=== PATIENT | female | born 1960 | race Caucasian/White ===

== ENCOUNTER 2020-09-17 09:30 | Day surgery (SDC) | payer MEDICARE, MEDICAID ==
[~2020-09-17] VITALS: Ht 165.1 cm; Wt 70.0 kg
[2020-09-17 10:28] VITALS: BP 120/55; PULSE 81; TEMP 98
[2020-09-17] MEDS ORDERED: SPIRIVA RESPIMAT4 GM IH (10:39)
[2020-09-17] MEDS ORDERED: ALBUTEROL0.83 MG/ML IH (10:40)
[2020-09-17] MEDS ORDERED: PROVENTIL0.09 MG/A1 IH (10:40)
[2020-09-17] MEDS ORDERED: CHANTIX 1MG1 MG PO (10:40)
[2020-09-17] MEDS ORDERED: TRICOR145 MG PO (10:41)
[2020-09-17] MEDS ORDERED: IMODIUM 2MG CAPS2 MG PO (10:41)
[2020-09-17] MEDS ORDERED: ATARAX50 MG PO (10:42)
[2020-09-17] MEDS ORDERED: SYNTHROID0.05 MG/TA PO (10:42)
[2020-09-17] MEDS ORDERED: NEURONTIN600 MG/TAB PO (10:43)
[2020-09-17] MEDS ORDERED: FOLIC ACID 11 MG/TA1 PO (10:43)
[2020-09-17] MEDS ORDERED: LEXAPRO20 MG PO (10:44)
[2020-09-17] MEDS ORDERED: LIPITOR20 MG PO (10:44)
[2020-09-17] MEDS ORDERED: BUSPAR DIVIDOSE15 MG PO (10:44)
[2020-09-17] MEDS ORDERED: B-12 250 MCG PO (10:45)
[2020-09-17] MEDS ORDERED: SEROQUEL 200MG200 MG PO (10:46)
[2020-09-17] MEDS ORDERED: BENZOCAINE 20% TOP (10:46)
[2020-09-17] MEDS ORDERED: NORCO 325 MG-101 TAB PO (10:47)
[2020-09-17] MEDS ORDERED: FLONASE NASAL S16 GM NS (10:48)
[2020-09-17] MEDS ORDERED: KLONOPIN 0.5MG0.5 MG PO (10:48)
[2020-09-17] MEDS ORDERED: MASON NATURAL2000 IU PO (10:49)
[2020-09-17] MEDS ORDERED: TYLENOL 500MG500 MG PO (10:49)
[2020-09-17] MEDS ORDERED: VITAMIN D31000 IU PO (10:50)
[2020-09-17] MEDS ORDERED: VALTREX 50500 MG/TAB PO (10:51)
[2020-09-17 12:57] VITALS: BP 148/67; PULSE 75; TEMP 98.2
--- NOTE | 2020-09-17 12:57 | NUR ---
Pt to [facility] [place] [facility] via cart from [place]. Pt drowsy, arouses to stimuli. Rates pain 6/10 to right foot. Pt very drowsy. Will hold pain medication at this time. Pt quickly falls back to sleep. VSS. Ice pack placed to right ankle. Call light within reach. Side rails up x2.
[2020-09-17 13:15] VITALS: BP 148/58; PULSE 73
--- NOTE | 2020-09-17 13:15 | NUR ---
Pt sleeping. Respirations even and unlabored. Call light within reach.
[2020-09-17 13:30] VITALS: BP 148/60; PULSE 74
--- NOTE | 2020-09-17 13:30 | NUR ---
Pt continues to sleep. Respirations even and unlabored. Will continue to monitor. Call light within reach.
[2020-09-17] MEDS ORDERED: ZOHYDRO ER10 MG BC (13:44)
[2020-09-17] MEDS ORDERED: COLACE 100100 MG/CAP BC (13:44)
[2020-09-17] MEDS ORDERED: CLEOCIN HCL300 MG BC (13:44)
[2020-09-17 13:45] VITALS: BP 130/79; PULSE 77
--- NOTE | 2020-09-17 13:45 | NUR ---
Pt awake. Warm blanke, jello and coffee given per request. Pt denies pain. Pt states "my foot is numb." Post op shoe remains in place since admit to recovery. Call light within reach.
[2020-09-17 14:15] VITALS: BP 142/68; PULSE 79
--- NOTE | 2020-09-17 14:15 | NUR ---
Pt up to restroom with walker and stand by assist. Pt is NWB to RLE. Pt voids without difficulties and assisted back to bed. Pt dressing. Call light within reach.
--- NOTE | 2020-09-17 14:30 | NUR ---
Discharge instructions reviewed. Pt voices understanding. IV site discontinued with all parts intact.
--- NOTE | 2020-09-17 14:51 | NUR ---
Pt escorted to private car via wheel chair. Pt accompanied home by her daughter.
== END 2020-09-17 14:51 | disposition home or self-care (01) ==
LOC: SDCO 09:30
DX: L92.8 Other granulomatous disorders of the skin and subcutaneous tissue (principal); E78.5 Hyperlipidemia, unspecified; J44.9 Chronic obstructive pulmonary disease, unspecified; G47.33 Obstructive sleep apnea (adult) (pediatric); G89.29 Other chronic pain; M54.9 Dorsalgia, unspecified; I73.00 Raynaud's syndrome without gangrene; I35.1 Nonrheumatic aortic (valve) insufficiency; I65.21 Occlusion and stenosis of right carotid artery; I25.9 Chronic ischemic heart disease, unspecified; I35.9 Nonrheumatic aortic valve disorder, unspecified; J34.2 Deviated nasal septum; M34.1 CR(E)ST syndrome; E55.9 Vitamin D deficiency, unspecified; M34.83 Systemic sclerosis with polyneuropathy; M05.9 Rheumatoid arthritis with rheumatoid factor, unspecified; F17.210 Nicotine dependence, cigarettes, uncomplicated; F41.9 Anxiety disorder, unspecified; F31.9 Bipolar disorder, unspecified; Z90.710 Acquired absence of both cervix and uterus; Z79.899 Other long term (current) drug therapy; Z99.89 Dependence on other enabling machines and devices; Z79.890 Hormone replacement therapy; Z79.891 Long term (current) use of opiate analgesic; Z89.421 Acquired absence of other right toe(s)
CPT/HCPCS: J0690; J2250; J2405; J2704; J7120

== ENCOUNTER 2020-11-25 14:05 | Emergency (ER) | payer MEDICARE, MEDICAID ==
[~2020-11-25] VITALS: Ht 162.6 cm; Wt 68.2 kg
[~2020-11-25 14:05] MED LIST: ALBUTEROL0.83 MG/ML IH; ATARAX50 MG PO; B-12 250 MCG PO; BENZOCAINE 20% TOP; BUSPAR DIVIDOSE15 MG PO; CHANTIX 1MG1 MG PO; CLEOCIN HCL300 MG BC; COLACE 100100 MG/CAP BC; FLONASE NASAL S16 GM NS; FOLIC ACID 11 MG/TA1 PO; IMODIUM 2MG CAPS2 MG PO; KLONOPIN 0.5MG0.5 MG PO; LEXAPRO20 MG PO; LIPITOR20 MG PO; MASON NATURAL2000 IU PO; NEURONTIN600 MG/TAB PO; NORCO 325 MG-101 TAB PO; PROVENTIL0.09 MG/A1 IH; SEROQUEL 200MG200 MG PO; SPIRIVA RESPIMAT4 GM IH; SYNTHROID0.05 MG/TA PO; TRICOR145 MG PO; TYLENOL 500MG500 MG PO; VALTREX 50500 MG/TAB PO; VITAMIN D31000 IU PO; ZOHYDRO ER10 MG BC
[2020-11-25 16:31] LABS: BASO # 0.1 (0.0-0.2); BASO % 0.5 % (0.0-2.0); EOS # 0.4 (0.0-0.7); EOS % 3.1 % (0-4.0); GRAN # 6.6 (1.4-6.5); GRAN % 59.3 % (42.2-75.2); HEMATOCRIT 38.9 % (37.0-47.0); HEMOGLOBIN 11.9 g/dl (12.5-16.0); LYMPH # 3.4 (1.2-3.4); LYMPH % 30.6 % (20.0-51.0); MEAN CELL VOLUME 91 fl (80.0-100.0); MEAN CORPUSCULAR HEMOGLOBIN 28 pg (27.0-31.0); MEAN CORPUSCULAR HGB CONC 31 g/dl (33.0-37.0); MEAN PLATELET VOLUME 9.9 fl (7.4-10.4); MONO # 0.7 (0.1-0.6); MONO % 6.2 % (1.7-9.3); PLATELET COUNT 346 K/mm3 (130-400); RED BLOOD COUNT 4.27 M/mm3 (4.10-5.30); REDCELL DISTRIBUTION WIDTH-CV 14.8 % (11.5-14.5)
[2020-11-25 16:48] LABS: ALANINE AMINOTRANSFERASE 23 U/L (4-34); ALBUMIN 4.4 gm/dL (3.5-5.0); ALKALINE PHOSPHATASE 41 U/L (50-136); ANION GAP 10 mmol/L (7-16); AST,SGOT 40 U/L (15-37); BILIRUBIN,TOTAL 0.3 mg/dL (0.0-1.0); BLOOD UREA NITROGEN 6 mg/dL (7-17); CALCIUM 9.7 mg/dL (8.4-10.2); CARBON DIOXIDE 26 mmol/L (22-30); CHLORIDE 105 mmol/L (98-107); GLUCOSE 86 mg/dL (74-106); LIPASE 73 U/L (23-300); POTASSIUM 3.6 mmol/L (3.4-5.0); SODIUM 141 mmol/L (137-145); TOTAL PROTEIN 7.5 gm/dL (6.4-8.2)
[2020-11-25 16:52] LABS: COLLECTION METHOD CLEAN CATCH
[2020-11-25 16:57] LABS: PH 7 (5-8); SQUAMOUS EPITHELIAL 0-2 /hpf; URINE APPEARANCE Clear; URINE BACTERIA None Seen /hpf; URINE BILIRUBIN Negative (NEGATIVE); URINE BLOOD Negative (NEGATIVE); URINE COLOR Straw; URINE GLUCOSE Negative (NEGATIVE); URINE KETONE Negative (NEGATIVE); URINE LEUKOCYTE ESTERASE Negative (NEGATIVE); URINE NITRATE Negative (NEGATIVE); URINE PROTEIN(semi-quant) Negative (NEGATIVE); URINE RBC 0-2 /hpf; URINE UROBILINOGEN Negative (NEGATIVE)
[2020-11-25 17:04] LABS: TRICYCLIC ANTIDEPRESS URINE POSITIVE
[2020-11-25 17:13] LABS: TROPONIN-I < 0.012 ng/mL (0.000-0.035)
[2020-11-25 18:45] VITALS: BP 106/45; PULSE 89; TEMP 98.3
== END 2020-11-25 18:50 | disposition home or self-care (01) ==
LOC: COL.ER 14:05
PROVIDERS: Emergency Medicine
DX: G40.909 Epilepsy, unspecified, not intractable, without status epilepticus (principal); E78.5 Hyperlipidemia, unspecified; E03.9 Hypothyroidism, unspecified; Z79.890 Hormone replacement therapy; Z79.899 Other long term (current) drug therapy